=== PATIENT | female | born 1980 | race Caucasian/White ===

== ENCOUNTER → 2017-02-28 | Outpatient (CLI) | payer BC | END | disposition home or self-care (01) | LOC: C.PAPS 09:18 | PROVIDERS: ATTEND Obstetrics & Gynecology | DX: Z01.419 Encounter for gynecological examination (general) (routine) without abnormal findings (principal); Z11.51 Encounter for screening for human papillomavirus (HPV) ==

== ENCOUNTER 2019-03-05 05:43 | Inpatient (IN) ==
[2019-03-05] MEDS ORDERED: CITRIC ACID/SODIUM CITRATE 15 ML UDC PO SCH ×2 (06:00)
[2019-03-05] MEDS ORDERED: CLINDAMYCIN 900 MG in DEXTROSE 5% 50 ML IV SCH (06:00)
[2019-03-05] MEDS ORDERED: LACTATED RINGER'S 1,000 ML IV SCH ×4 (06:00→10:38)
[2019-03-05 06:08] LABS: Basophils # (auto) 0.01 K/uL (0-0.2); Basophils % (auto) 0.1 %; Eosinophils # (auto) 0.06 K/uL (0-0.5); Eosinophils % (auto) 0.9 %; Hematocrit (blood only) 33.7 % (37-47); Hemoglobin 11.6 g/dL (12.0-16.0); Immature Granulocytes # (auto) 0.03 K/uL (0.00-0.02); Immature Granulocytes % (auto) 0.4 %; Lymphocytes # (auto) 1.97 K/uL (1.2-3.4); Lymphocytes % (auto) 28.7 %; Mean Corpuscular Hemoglobin 30.8 pg (25-34); Mean Corpuscular Volume 89.4 fL (80-100); Mean Platelet Volume 10.2 fL (7.4-10.4); Monocytes # (auto) 0.64 K/uL (0.11-0.59); Monocytes % (auto) 9.3 %; Neutrophils # (auto) 4.16 K/uL (1.4-6.5); Neutrophils % (auto) 60.6 %; Platelet Count 232 K/uL (130-400); RDW Coefficient of Variation 13.1 % (11.5-14.5); RDW Standard Deviation 42.7 fL (36.4-46.3); Red Blood Count 3.77 M/uL (4.2-5.4); White Blood Count 6.87 K/uL (4.8-10.8)
[2019-03-05 06:11] LABS: Mean Corpuscular Hgb Conc 34.4 g/dL (32-36)
[2019-03-05] MEDS ORDERED: ePHEDrine sulfate 50 MG/ML AMP IV PRN (07:25)
[2019-03-05] MEDS ORDERED: MoRPHine SULFATE 2 MG/ML CARP IV PRN (07:25)
[2019-03-05] MEDS ORDERED: NALBUPHINE HCL INJ 10 MG/ML AMP IV PRN (07:25)
[2019-03-05] MEDS ORDERED: HYDROmorphone INJ 0.5 MG/0.5 ML SYR IV PRN (07:25)
[2019-03-05] MEDS ORDERED: NALOXONE HCL 0.4 MG/1 ML VIAL/CARP IV PRN (07:25)
[2019-03-05] MEDS ORDERED: ONDANSETRON INJ 2 MG/ML 2 ML VIAL IV PRN (07:25)
[2019-03-05] MEDS ORDERED: PROMETHAZINE HCL 6.25 MG in SODIUM CHLORIDE 0.9% 50 ML IV PRN (07:25)
[2019-03-05] MEDS ORDERED: MoRPHine SULFATE PF 1 MG/ML 10 ML AMP/VIAL INT SPINAL ONE (07:25)
[2019-03-05] MEDS ORDERED: MEPERIDINE HCL 25 MG/ML CARP IV PRN (07:25)
[2019-03-05] MEDS ORDERED: LACTATED RINGER'S 500 ML IV PRN (07:25)
[2019-03-05] MEDS ORDERED: NALOXONE HCL 0.08 MG in SYRINGE 1.8 ML IV PRN (07:25)
[2019-03-05] MEDS ORDERED: DiphenhydrAMINE HCL 50 MG/ML VIAL IV PRN ×2 (07:25)
[2019-03-05] MEDS ORDERED: NALOXONE HCL 1 MG in SODIUM CHLORIDE 0.9% 1000ML 1,000 ML IV PRN (07:25)
--- NOTE | 2019-03-05 07:26 | History & Physical Bridge Note ---
Date of Service March 05, 2019 History & Physical Bridge Note I have examined the patient, reviewed the History & Physical and in the interval since the performance of the History & Physical I have noted the following changes of clinical significance: no changes noted
--- NOTE | 2019-03-05 07:28 | Anesthesiology Consultation ---
Date of Service March 05, 2019 Assessment & Plan (1) Encounter for pre-operative examination: Chart Review Chart Review: Acceptable Risk for Surgery and Patient NOT seen in Pre Admission Testing Consults Requested none ASA ASA2 Proposed Anesthesia Anesthesia Type: Spinal Risk / Benefits Reviewed With: PT / POA / Parent / Guardian, Accepts Plan and Informed Consent Obtained History Surgery Operation Date: 03/05/19 07:30 Proposed Procedures p Section in LD - Yenni Zaragoza MD, FACOG Height/Weight Height: 5 ft 11 in Weight: 101.151 kg Allergies Allergy/AdvReac Type Severity Reaction Status Date / Time amoxicillin Allergy Severe Swelling Verified 03/04/19 14:14 of throat Medications Home Medications Medication Instructions Recorded Confirmed Last Taken 1 tab PO DAILY 02/28/18 03/04/19 02/25/18 08:00 calcium carbonate [Tums] 200 mg PO UD PRN 02/25/19 03/04/19 Unknown NPO Date Last Intake of Fluids: 03/04/19 Time Last Intake of Fluids: 23:00 Date Last Intake of Solids: 03/04/19 Time Last Intake of Solids: 19:00 Past Medical History Medical History Family history of reaction to anesthesia MOTHER SLOW TO WAKE UP Heart palpitations HX OF IN EARLY , HALTER - NO FINDINGS - RESOLVED Heartburn during History of migraine headaches Heart murmur (Acute) DX TEENAGER, NO PROBLEMS WITH Exercise / Class Metabolic Activity II 4-5 Yardwork/Stairs/Walk up hill Past Family History Family History Mother Diabetes Myocardial infarction Grandfather Myocardial infarction Sister Cervical incompetence Past Surgical History Surgical History History of section History of dilation and curettage History of loop electrical excision procedure (LEEP) Past Anesthesia History No Hx of Anesthesia Complications and No Family Hx of Anesthesia Complications History of PONV No Hx of PONV and No Hx of Motion Sickness Social History Smoking Status: Never smoker Do You Dip or Chew Tobacco: No Smoking End Date: 6 YRS AGO Hx Alcohol Use: No Alcohol type: wine alcohol intake frequency: holidays/special occasions only Hx Substance Use: No substance use type: does not use Physical Exam Vital Signs Last Vital Signs Temp 36.8 C 03/05/19 07:00 Pulse 68 03/05/19 07:01 Resp 20 03/05/19 07:00 BP 153/91 H 03/05/19 07:01 ENMT Mouth: no dentition abnormality Thyromental Distance: > or= 3.5 Finger Breadths Mallampati Class: II Neck normal visual inspection Respiratory normal respiratory effort Auscultation: lungs clear to auscultation bilaterally Cardiovascular Rate/Rhythm: regular rate and regular rhythm Psychiatric Orientation: alert Testing Laboratory Results 03/05/19 05:58
[2019-03-05] MEDS ORDERED: DC INTRASPINAL MORPHINE SCH (07:30)
[2019-03-05] MEDS ORDERED: NO NARCOTICS OR SEDATIVES SCH (07:30)
[2019-03-05] MEDS ORDERED: SODIUM CHLORIDE 0.9% 1000ML 1,000 ML IV SCH (07:30)
--- NOTE | 2019-03-05 07:30 | History & Physical Report ---
Date of Service March 05, 2019 Assessment & Plan (1) with 39 completed weeks gestation: fetus category one. Plan repeat c/s. r/b/se of surgery reviewed. Questions asked and answered. Plan to proceed. (2) History of delivery, antepartum: (3) Supervision of multigravida of advanced maternal age, antepartum: History of Present Illness Chief Complaint: desires c/s Primary Care Provider: NO PCP Patient is a 38yowf with iup at 39 0/7 weeks who presents to labor and delivery for repeat c/s. She has hx of previous c/s for FTD and declines a trial of labor. the has been uncomplicated. She is ama with a low risk panorama and normal testing. +fm . No lof /vb. Allergies Allergy/AdvReac Type Severity Reaction Status Date / Time amoxicillin Allergy Severe Swelling Verified 03/04/19 14:14 of throat Home Medications Home Medications Medication Instructions Recorded Confirmed Type 1 tab PO DAILY 02/28/18 03/04/19 History calcium carbonate [Tums] 200 mg PO UD PRN 02/25/19 03/04/19 History Patient History Medical History Family history of reaction to anesthesia MOTHER SLOW TO WAKE UP Heart palpitations HX OF IN EARLY , HALTER - NO FINDINGS - RESOLVED Heartburn during History of migraine headaches Heart murmur (Acute) DX TEENAGER, NO PROBLEMS WITH Surgical History History of section History of dilation and curettage History of loop electrical excision procedure (LEEP) Family History Mother Diabetes Myocardial infarction Grandfather Myocardial infarction Sister Cervical incompetence Social History Preferred Language: Polish Communication Ability: Effective Visual Impairment: No Limitations Camp Dining Room Attendant Required: No Beliefs That Will Affect Care: None marital status: Current Living Situation: Family Other Information That Helps Us Care for You: No Feels Safe at Home: Yes Safety Concerns: Feels Safe At This Time Smoking Status: Never smoker Do You Dip or Chew Tobacco: No ; Smoking End Date: 6 YRS AGO ; Second Hand Exposure: No ; Hx Alcohol Use: No Hx Substance Use: No OB History g1--2003, sab g2--06/23, 9 #2oz, c/s for FTD bg3--blighted ovum SYSTEMS SPECIALIST History Hx of leep in 2003 Review of Systems All systems reviewed & are unremarkable except as noted in HPI & below Physical Exam Constitutional: WD/WN, vitals as above Respiratory: normal respiratory effort, lungs clear to auscultation Cardiovascular: RRR, no murmur, no edema Gastrointestinal (Abdomen): soft, nt, gravid Psychiatric: A+Ox3, euthymic affect Results & Data Vital Signs (Past 12 Hours) Vital Signs Temp Pulse Resp BP 03/05/19 07:01 68 153/91 H 03/05/19 07:00 36.8 C 20 03/05/19 05:57 78 136/82 03/05/19 05:51 36.8 C 20
[2019-03-05] MEDS ORDERED: fentaNYL citrate 100 MCG/2 ML VIAL ONE (07:39)
[2019-03-05] MEDS ORDERED: MoRPHine SULFATE PF 1 MG/ML 10 ML AMP/VIAL ONE (07:39)
[2019-03-05] MEDS ORDERED: ONDANSETRON INJ 2 MG/ML 2 ML VIAL ONE (08:18)
[2019-03-05] MEDS ORDERED: OXYTOCIN 10 UNITS/ML VIAL ONE (08:18)
[2019-03-05] MEDS ORDERED: PHENYLEPHRINE 100MCG/ML 5ML SYR ONE (08:18)
[2019-03-05] MEDS ORDERED: KETOROLAC 30 MG/ML VIAL ONE (08:18)
--- NOTE | 2019-03-05 08:32 | Post Operative Brief Note ---
PG Immediate Post Op with CF Date of Surgery March 05, 2019 Pre & Post Diagnosis Operation Date: 03/05/19 07:30 Pre-Op Diagnosis: Intrauterine at 39 weeks with previous section Post-Op Diagnosis: Intrauterine at 39 weeks with previous section. Living male child delivered at 0806 Procedure Operation Date: 03/05/19 07:30 Actual Procedures p Repeat low transverse Section for living male child at 0806(Bilateral) - Yenni Zaragoza MD, FACOG Surgeon Yenni Zaragoza MD, FACOG Help Desk Consultant Dr. Matute Estimated Blood Loss 500 Findings Consistent with Post-Op Diagnosis Specimens Specimen Description: A; Placenta-hold B; Cord Blood C; Arterial Cord Gas D; Venous Cord Gas Drains Sage Catheter (sage inserted after spinal without difficulty. Draining clear yellow urine. Urine output to be monitored by anesthesia intraoperatively)
[2019-03-05 08:49] LABS: Base Excess Cord Arterial Bld -2.1 mEq/L (-9-1.8); CO2 Cord Arterial Blood 65 mmHg (39.1-73.5); HCO3 Cord Arterial Blood 27 mmol/L (19.7-28.5); pH Cord Arterial Blood 7.24 (7.1-7.38)
--- NOTE | 2019-03-05 08:54 | Anesthesiology Progress Note ---
Date of Service March 05, 2019 Anesthesia Post Procedure Vital Signs Vital Signs: Temp Pulse Resp BP Pulse Ox 03/05/19 08:51 63 119/71 03/05/19 08:47 66 96 03/05/19 08:44 65 94 03/05/19 08:42 65 97 03/05/19 08:39 69 118/68 94 03/05/19 08:37 69 98 03/05/19 07:01 68 153/91 H 03/05/19 07:00 36.8 C 20 03/05/19 05:57 78 136/82 03/05/19 05:51 36.8 C 20 Transfer of Care Handoff Completed per policy Notes Mental Status: alert / awake / arousable Nausea / Vomiting: adequately controlled Pain: adequately controlled Airway Patency, RR, SpO2: stable & adequate BP & HR: stable & adequate Hydration State: stable & adequate Neuraxial Anesthesia: was administered and sensory block is resolving Anesthetic Complications: no major complications apparent
[2019-03-05 08:56] LABS: Base Excess Cord Venous Blood -1.7 mEq/L (-7.7-1.9); Cord Venous Blood HCO3 25 mmol/L (18.4-26.8); Cord Venous Blood PCO2 47 mmHg (30.4-57.2); Cord Venous Blood PO2 21 mmHg (14.1-43.3); Cord Venous Blood pH 7.34 (7.20-7.44)
[2019-03-05 08:57] LABS: O2 Saturation Cord Venous Bld < 60.0 % (<68); Oxygen Sat Cord Arterial Blood < 60.0 % (<60)
--- NOTE | 2019-03-05 10:08 | Operative Report ---
DATE OF OPERATION: 03/05/2019 PREOPERATIVE DIAGNOSES: 1. Intrauterine at 39 and 0/7 weeks. 2. History of previous section, desires repeat. POSTOPERATIVE DIAGNOSES: 1. Intrauterine at 39 and 0/7 weeks. 2. History of previous section, desires repeat. PROCEDURE: Repeat lower transverse section. SURGEON: Yenni Zaragoza MD. MEDIA CENTER ASSISTANT: Giovani. ANESTHESIA: Spinal. ESTIMATED BLOOD LOSS: 500 mL. URINE OUTPUT: 500 mL of clear yellow urine drained from the bladder at the end of the procedure. FLUIDS: 1200 mL. INDICATIONS: The patient is 4, para 1-0-2-1, who presents at 39 weeks for repeat section and declines trial of labor. FINDINGS: Normal uterus, tubes and ovaries were noted bilaterally. Minimal scarring. Viable male infant was delivered in direct OP presentation. Apgars 8 and 9. Weight 8 pounds 1 ounce. COMPLICATIONS: None. DRAINS: Yanez. DISPOSITION: To Recovery Room in stable condition. DESCRIPTION OF PROCEDURE: The patient was taken to the Operating Room where she was identified verbally and by bracelet. She was seated on the operating table where spinal anesthetic was placed. She was then placed in dorsal supine position with a leftward tilt. A Yanez catheter was placed sterilely and she was prepped and draped in normal sterile fashion. Her anesthetic was tested and found to be adequate. A time-out was held identifying correct patient, procedure, positioning, preoperative antibiotic and there were no concerns. A Pfannenstiel skin incision was made with a knife, taken down to the underlying layer of fascia with the knife. Bleeding was attended to with Bovie electrocautery. The fascia was incised in the midline with the knife, taken out laterally with scissors. The superior edge of the fascial incision was grasped, elevated and the underlying layer of rectus muscle was taken off bluntly with scissors. In a similar fashion, the inferior edge of the fascial incision was grasped, elevated and the underlying layer of rectus muscle was taken off bluntly and with scissors. The muscles were sharply in the midline. The peritoneum had been entered upon taking down the fascia. There was a little bit of omental adhesions to the posterior fascia that was taken down with Bovie electrocautery. The incision was then stretched. Bladder blade was placed. Vesicouterine peritoneum was identified, entered with a pair of scissors, taken out laterally with scissors and the bladder flap was created digitally. The bladder blade was replaced. DICTATION ENDS ABRUPTLY I attest to the content of the Intraoperative Record and any orders documented therein. Any exception s are noted below.
--- NOTE | 2019-03-05 10:34 | Operative Report ---
DATE OF OPERATION: 03/05/2019 DATE OF PROCEDURE: 03/04/2019 PREOPERATIVE DIAGNOSES: 1. Intrauterine at 39 weeks. 2. History of previous sections, desires repeat. POSTOPERATIVE DIAGNOSES: 1. Intrauterine at 39 weeks. 2. History of previous sections, desires repeat. PROCEDURE: Repeat low transverse section. SURGEON: Yenni Zaragoza MD SYSTEMS AUDITOR: Gustavo Matute MD. ESTIMATED BLOOD LOSS: 500 mL. FLUIDS: 1200 mL. URINE OUTPUT: 500 mL of clear yellow urine drained from the bladder at the end of the procedures. ANESTHESIA: Spinal. INDICATIONS: The patient is a 4, para 1-0-2-1, who had a previous section for failure to descend. She desires repeat and declines trial of labor. FINDINGS: Normal male in direct OP presentation, no nuchal cord, clear fluid, Apgars 8 and 9. Weight 8 pounds 1 ounce. Normal uterus, tubes, and ovaries were noted bilaterally. COMPLICATIONS: None. DRAINS: Yanez. DISPOSITION: To recovery room in stable condition. DESCRIPTION OF PROCEDURE: The patient was taken to the operating room where she was identified verbally and by bracelet. She was seated on the operating table where spinal anesthetic was placed. She was then placed in the dorsal supine position with leftward tilt. A Yanez catheter was placed sterilely and she was prepped and draped in a normal sterile fashion. Timeout was held, identifying correct patient, procedure, positioning, and preoperative antibiotic. There were no concerns. A Pfannenstiel skin incision was made with a knife. This was taken down to the underlying layer of fascia with the knife and Bovie electrocautery. Bleeding was attended to with Bovie electrocautery. The fascia was incised in the midline with a knife and taken out laterally with scissors. The superior edge of the fascial incision was grasped, elevated, and underlying layer of rectus muscle was taken off bluntly and with scissors. In a similar fashion, the inferior edge of the fascial incision was grasped, elevated and the underlying layer of rectus muscle was taken off bluntly and with scissors. The peritoneum had been entered while taking down the fascia. There were some adhesions of the omentum to the posterior fascia. The muscles were sharply in the midline. The peritoneum was taken inferiorly with good visualization of the bladder. The incision was stretched. The omentum was removed using Bovie electrocautery. The vesicouterine peritoneum was identified, entered with a Metzenbaum scissors, taken out laterally with scissors and the bladder flap was created digitally. Hysterotomy incision was scored with a knife. It was eventually entered with a snap. The amniotic sac was ruptured for clear fluid. The incision was stretched with the shell trim operator's fingers. The shell trim operator's hand was placed into the uterine incision and had a difficult time delivering the head through the incision. A vacuum was called for and it was applied and popped off and then was applied again and the fetus head was delivered. There was no nuchal cord. The nose and mouth were bulb suctioned. The head presented to direct OP presentation. The rest of the infant was then delivered with fundal pressure. There was immediate cry. Cord was clamped and cut and the infant was handed off to the awaiting pediatricians for drying and attention. Cord blood and segment were obtained. Placenta was manually extracted. The uterus was exteriorized and cleared of all clot and debris with moistened laparotomy sponges. The hysterotomy was repaired in layers, the first in a running locked layer of 0 Vicryl, the second in an imbricating layer of 0 Vicryl. The posterior cul-de-sac was irrigated and cleared of all clot and debris. The hysterotomy incision was again inspected and found to be hemostatic. The uterus was reanteriorized. The incision was irrigated and inspected again and found to be hemostatic. The muscles were reapproximated with several interrupted sutures of 0 Vicryl and the fascia was reapproximated starting at the corners and meeting in the midline with 0 Vicryl. Subcuticular tissue was irrigated. Bleeding was attended to with Bovie electrocautery and then the skin was closed with subcuticular stitch of 4-0 Vicryl. All sponge, lap and needle counts were correct x2. The patient tolerated the procedure well and was taken to recovery room in stable condition. I attest to the content of the Intraoperative Record and any orders documented therein. Any exception s are noted below.
[2019-03-05] MEDS ORDERED: MAGNESIUM HYDROXIDE SUSP 30 ML UDC PO PRN (10:38)
[2019-03-05] MEDS ORDERED: HYDROCORTISONE ACETATE 25 MG SUPP PR PRN (10:38)
[2019-03-05] MEDS ORDERED: SUPERCREAM 0.870% 15 GM JAR EXT PRN (10:38)
[2019-03-05] MEDS ORDERED: BENZOCAINE 20% AER SPR 82.5 GM CAN EXT PRN (10:38)
[2019-03-05] MEDS ORDERED: DIPHTHERIA/TETANUS/PERTUSSIS 0.5 ML SYR/VIAL IM ONE (10:38)
[2019-03-05] MEDS ORDERED: OXYTOCIN 20 UNITS in LACTATED RINGER'S 1,000 ML IV SCH (10:38)
[2019-03-05] MEDS: SIMETHICONE 80 MG CHEW PO SCH ×3 (16:40→20:59)
[2019-03-05] MEDS: KETOROLAC 30 MG/ML VIAL IV PRN ×2 (17:31→23:59)
[2019-03-05] MEDS: DOCUSATE SODIUM 100 MG CAP PO SCH (20:59)
[2019-03-06] MEDS ORDERED: MEPERIDINE HCL 50 MG/ML CARP IV PRN (01:25)
[2019-03-06] MEDS ORDERED: DiphenhydrAMINE HCL 50 MG/ML VIAL IV PRN (01:25)
[2019-03-06] MEDS ORDERED: PROMETHAZINE HCL 25 MG in SODIUM CHLORIDE 0.9% 50 ML IV PRN (01:25)
[2019-03-06] MEDS ORDERED: KETOROLAC 30 MG/ML VIAL IV PRN (01:25)
[2019-03-06] MEDS ORDERED: ONDANSETRON INJ 2 MG/ML 2 ML VIAL IV PRN (01:25)
[2019-03-06] MEDS: OXYCODONE/ACETAMINOPHEN 5mg/325mg TAB PO PRN ×4 (05:02→22:20)
--- NOTE | 2019-03-06 06:18 | Obstetrical Progress Note ---
Date of Service <Flora Sullivan DO - Last Filed: 03/06/19 06:45> March 06, 2019 Assessment & Plan <DO Melissa Cason Last Filed: 03/06/19 06:45> (1) Encounter for care and examination after delivery: 38 yo F POD #1, doing well and without complaints this morning. section - POD #1 - Feels well, ambulating well, voiding well. - Will continue routine care. - Following d/c will have f/u in 6 weeks. - Blood type A+, Rubella immune. Subjective <Flora Sullivan DO - Last Filed: 03/06/19 06:45> Ara is a 38 yo female with advanced maternal age; POD # 1 following section delivery at 39w0d; doing well this AM; no abdominal cramping/pain; voiding well, passing gas but no BM; tolerating meals overnight, able to ambulate some within the room. Some persistent spotting this morning but improved from yesterday. 24 Hour I/Os: Intake: 4690 mL Output: 5900 mL Review of Systems Constitutional: denies fever, chills, sweats, headache Respiratory: denies SOB, difficulty breathing Cardiac: denies CP, chest palpitations, chest pressure Breast: denies breast pain : denies dysuria Physical Exam <DO Melissa Cason Last Filed: 03/06/19 06:45> General: patient is alert and oriented, in NAD Cardiac: +S1/S2, no murmurs rubs or gallops Respiratory: lungs CTA b/l, anteriorly and posteriorly, no wheezes rales or rhonchi, no increased work of breathing, symmetric chest rise, no respiratory distress Abdomen: soft, NT, +bowel sounds Uterus: uterine fundus firm, palpable 1cm below the umbilicus. Incision intact, non-tender, non-erythematous, no weeping from incision site Lower Extremities: no LE edema or swelling, no deep calf pain, Krystyna's sign negative b/l Results & Data <DO Melissa Cason Last Filed: 03/06/19 06:45> Vital Signs (Past 12 Hours) Vital Signs Temp Pulse Resp BP Pulse Ox 03/06/19 04:50 37.1 C 61 16 121/81 97 03/06/19 00:55 16 98 09/27/19 00:15 36.3 C L 65 16 115/73 99 03/05/19 23:20 16 99 03/05/19 22:35 16 96 03/05/19 21:03 18 99 03/05/19 20:00 20 100 03/05/19 19:40 36.8 C 73 20 148/83 H 100 03/05/19 19:15 18 95 Laboratory Results Laboratory Results - last 24 hr 03/05/19 03/05/19 03/05/19 05:58 08:06 08:06 Cord ABG pH 7.24 Cord ABG pCO2 65 Cord ABG pO2 14.0 Cord ABG HCO3 27 Cord ABG Base Excess -2.1 Cord ABG O2 Sat < 60.0 Cord VBG pH 7.34 Cord VBG pCO2 47 Cord VBG pO2 21 Cord VBG HCO3 25 Cord VBG Base Excess -1.7 Cord VBG O2 Sat < 60.0 Barometric Pressure 728.4 728.4 Blood Gas Comments SALDANA SALDANA Blood Type A Positive Antibody Screen NEGATIVE Medications Administered Current Medications Benzocaine (Dermoplast Pain Relieving [place]) 1 appln EXT UD PRN PRN Reason: use on skin as needed Stop: 04/04/19 10:37 Bisacodyl (Dulcolax) 5 mg PO 1999 [facility] Stop: 03/06/19 20:01 Bisacodyl (Dulcolax) 10 mg IA PRN PRN PRN Reason: Constipation Stop: 04/06/19 08:40 Cocaine HCl (Supercream 0.870%) 1 gm EXT UD PRN PRN Reason: hemmorrhoidal inflammation Stop: 03/19/19 10:37 Diphenhydramine HCl (Benadryl) 25 mg IV QID PRN PRN Reason: Itching Stop: 04/05/19 01:24 Diphenhydramine HCl (Benadryl Capsule) 25 mg PO QID PRN PRN Reason: Itching Stop: 04/05/19 01:24 Docusate Sodium (Colace) 100 mg PO DAILY@, [facility] Stop: 04/04/19 20:59 Last Admin: 03/05/19 20:59 Dose: 100 mg Documented by: Hydrocortisone (Anusol Hc) 25 mg IA BID PRN PRN Reason: Hemorrhoids Stop: 04/04/19 10:37 Lactated Ringer's (Lr) 1,000 mls @ 125 mls/hr IV .Q8H JENARO Stop: 04/04/19 10:37 Last Infusion: 03/06/19 01:55 Dose: 0 mls/hr Documented by: Promethazine HCl 25 mg/ Sodium (Chloride) 51 mls @ 204 mls/hr IV Q4H PRN PRN Reason: Nausea And Vomiting Stop: 04/05/19 01:24 Ibuprofen (Motrin) 600 mg PO Q4H PRN PRN Reason: Pain Stop: 04/04/19 10:37 Ketorolac Tromethamine (Toradol) 30 mg IV Q6H PRN PRN Reason: Pain Stop: 03/11/19 01:24 Magnesium Hydroxide (Milk Of Magnesia) 30 ml PO HS PRN PRN Reason: Constipation Stop: 04/04/19 10:37 Meperidine HCl (Demerol) 50 - 75 mg IV Q4H PRN PRN Reason: Pain Stop: 03/20/19 01:24 Ondansetron HCl (Zofran) 4 mg IV Q4H PRN PRN Reason: Nausea And Vomiting Stop: 04/05/19 01:24 Oxycodone/Acetaminophen (Percocet 5mg/325mg) 1 - 2 tab PO Q4H PRN PRN Reason: Pain Stop: 03/20/19 01:24 Last Admin: 03/06/19 05:02 Dose: 1 tab Documented by: Prenat Multivit/Appraisal Specialist/Iron/Folic Ac ( Vitamin) 1 tab PO DAILY@08 JENARO Stop: 04/05/19 07:59 Simethicone (Mylicon) 80 mg PO DAILY@08,13,17,21 [facility] Stop: 04/04/19 12:59 Last Admin: 03/05/19 20:59 Dose: 80 mg Documented by: <Yenni Zaragoza MD, FACOG - Last Filed: 03/06/19 07:11> Co-Signing Physician Notes Resident Physician Supervision Note: I interviewed and examined the patient. Discussed with Dr. Dr. Waite and agree with findings and plan as documented in the note. Any exceptions or clarifications are listed here: Doing well. Routine PPD/POD 1. Documented By: Yenni Zaragoza MD, FACOG Resident Activity Tracking <Flora Sullivan, DO - Last Filed: 03/06/19 06:45> Resident Involvement: Resident Care Provided Care Provided: Adult Hospital Medicine
[2019-03-06 06:57] LABS: Basophils # (auto) 0.01 K/uL (0-0.2); Basophils % (auto) 0.1 %; Eosinophils # (auto) 0.04 K/uL (0-0.5); Eosinophils % (auto) 0.5 %; Hematocrit (blood only) 28.3 % (37-47); Hemoglobin 9.7 g/dL (12.0-16.0); Immature Granulocytes # (auto) 0.01 K/uL (0.00-0.02); Immature Granulocytes % (auto) 0.1 %; Lymphocytes # (auto) 1.47 K/uL (1.2-3.4); Lymphocytes % (auto) 17.1 %; Mean Corpuscular Hemoglobin 30.6 pg (25-34); Mean Corpuscular Hgb Conc 34.3 g/dL (32-36); Mean Corpuscular Volume 89.3 fL (80-100); Mean Platelet Volume 10.1 fL (7.4-10.4); Monocytes # (auto) 0.79 K/uL (0.11-0.59); Monocytes % (auto) 9.2 %; Platelet Count 183 K/uL (130-400); RDW Coefficient of Variation 13.2 % (11.5-14.5); RDW Standard Deviation 42.6 fL (36.4-46.3); Red Blood Count 3.17 M/uL (4.2-5.4); White Blood Count 8.62 K/uL (4.8-10.8)
[2019-03-06] MEDS: SIMETHICONE 80 MG CHEW PO SCH ×4 (08:13→20:42)
[2019-03-06] MEDS: DOCUSATE SODIUM 100 MG CAP PO SCH ×2 (08:14→20:42)
[2019-03-06] MEDS: PRENATAL VITAMIN 1 TAB PO SCH (08:14)
--- NOTE | 2019-03-06 09:01 | Anesthesiology Progress Note ---
Date of Service March 06, 2019 Anesthesia Post Procedure Vital Signs Vital Signs: Temp Pulse Pulse Resp BP BP Pulse Ox 03/06/19 08:34 37.0 C 69 16 116/76 03/06/19 04:50 37.1 C 61 16 121/81 97 03/06/19 00:55 16 98 03/06/19 00:15 36.3 C L 65 16 115/73 99 03/05/19 23:20 16 99 03/05/19 22:35 16 96 03/05/19 21:03 18 99 03/05/19 20:00 20 100 03/05/19 19:40 36.8 C 73 20 148/83 H 100 03/05/19 19:15 18 95 03/05/19 17:08 15 99 03/05/19 16:22 37.1 C 66 16 139/66 98 03/05/19 15:15 16 99 03/05/19 14:04 16 100 03/05/19 13:17 16 99 03/05/19 12:20 16 99 03/05/19 11:38 36.8 C 63 16 145/87 H 99 03/05/19 11:22 64 100 03/05/19 11:20 66 145/87 H 03/05/19 11:17 61 150/89 H 99 03/05/19 11:12 61 99 03/05/19 11:11 62 89 L 03/05/19 11:10 61 133/92 03/05/19 11:07 63 100 03/05/19 11:02 67 100 03/05/19 11:00 60 130/87 03/05/19 10:57 64 100 03/05/19 10:52 67 99 03/05/19 10:50 60 127/83 03/05/19 10:47 63 99 03/05/19 10:42 67 99 03/05/19 10:40 36.8 C 60 20 125/84 03/05/19 10:37 63 98 03/05/19 10:32 62 98 03/05/19 10:30 62 126/82 03/05/19 10:27 63 99 03/05/19 10:22 65 97 03/05/19 10:20 61 124/74 03/05/19 10:17 62 98 03/05/19 10:12 64 99 03/05/19 10:10 62 20 128/84 03/05/19 10:07 65 99 03/05/19 10:02 62 99 03/05/19 10:00 62 127/84 03/05/19 09:57 68 98 03/05/19 09:52 65 98 03/05/19 09:50 61 122/76 03/05/19 09:47 62 96 03/05/19 09:42 63 97 03/05/19 09:40 36.5 C 70 20 127/77 03/05/19 09:37 63 97 03/05/19 09:32 63 97 03/05/19 09:30 59 L 20 119/68 03/05/19 09:27 63 97 03/05/19 09:22 63 97 03/05/19 09:20 61 20 122/58 L 03/05/19 09:17 62 96 03/05/19 09:12 60 97 03/05/19 09:11 61 117/58 L 03/05/19 09:10 20 03/05/19 09:07 65 96 03/05/19 09:02 66 96 Transfer of Care Handoff Completed per policy Notes Mental Status: alert / awake / arousable Patient Amnestic to Procedure: Yes Nausea / Vomiting: adequately controlled Pain: adequately controlled Airway Patency, RR, SpO2: stable & adequate BP & HR: stable & adequate Hydration State: stable & adequate Neuraxial Anesthesia: was administered and sensory block resolved Anesthetic Complications: no major complications apparent and Pt Satisfied with anesthetic care
[2019-03-06] MEDS: IBUPROFEN 600 MG TAB PO PRN ×3 (10:32→22:20)
[2019-03-06] MEDS ORDERED: bisacodyL 5 MG TABEC PO SCH (20:00)
[2019-03-07 06:40] LABS: Hematocrit (blood only) 30.2 % (37-47); Hemoglobin 10.2 g/dL (12.0-16.0)
--- NOTE | 2019-03-07 06:54 | Obstetrical Progress Note ---
Date of Service <Flora Sullivan DO - Last Filed: 03/07/19 08:00> March 07, 2019 Assessment & Plan <Flora Sullivan DO - Last Filed: 03/07/19 08:00> (1) Encounter for care and examination after delivery: 38 yo F POD #2 following section at 39w0d, doing well and without complaints this morning. section - POD #2 - Feels well, ambulating well, voiding well. - For discharge today. - Following d/c will have f/u in 6 weeks. - Blood type A+, Rubella immune. - Discussed discharge instructions and answered all patient questions. Subjective <Flora Sullivan DO - Last Filed: 03/07/19 08:00> Ara is a 38 yo female ; POD # 2 following section delivery at 39w0d; doing well this AM; no abdominal cramping/pain; voiding well, passing gas but no BM; tolerating meals overnight, able to ambulate some within the room. Some persistent spotting this morning but improved from yesterday. Desires d/c today. 24 Hour I/Os: not recorded Review of Systems Constitutional: denies fever, chills, sweats, headache Respiratory: denies SOB, difficulty breathing Cardiac: denies CP, chest palpitations, chest pressure Breast: denies breast pain : denies dysuria Physical Exam <Flora Sullivan DO - Last Filed: 03/07/19 08:00> General: patient is alert and oriented, in NAD Cardiac: +S1/S2, no murmurs rubs or gallops Respiratory: lungs CTA b/l, anteriorly and posteriorly, no wheezes rales or rhonchi, no increased work of breathing, symmetric chest rise, no respiratory distress Abdomen: soft, NT, +bowel sounds Uterus: uterine fundus firm, palpable 1cm below the umbilicus. Incision intact, non-tender, non-erythematous, no weeping from incision site Lower Extremities: no LE edema or swelling, no deep calf pain, Krystyna's sign negative b/l Results & Data <Flora Sullivan DO - Last Filed: 03/07/19 08:00> Vital Signs (Past 12 Hours) Vital Signs Temp Pulse Resp BP 03/06/19 23:30 37.1 C 73 18 137/81 Laboratory Results Laboratory Results - last 24 hr 03/06/19 03/07/19 06:24 06:25 WBC 8.62 RBC 3.17 L Hgb 9.7 L 10.2 L Hct 28.3 L 30.2 L MCV 89.3 MCH 30.6 MCHC 34.3 RDW Std Deviation 42.6 RDW Coeff of Sonia 13.2 Plt Count 183 MPV 10.1 Immature Gran % (Auto) 0.1 Neut % (Auto) 73.0 Lymph % (Auto) 17.1 [place] % (Auto) 9.2 Eos % (Auto) 0.5 Baso % (Auto) 0.1 Immature Gran # (Auto) 0.01 Neut # (Auto) 6.30 Lymph # (Auto) 1.47 [place] # (Auto) 0.79 H Eos # (Auto) 0.04 Baso # (Auto) 0.01 Medications Administered Current Medications Benzocaine (Dermoplast Pain Relieving Keener) 1 appln EXT UD PRN PRN Reason: use on skin as needed Stop: 04/04/19 10:37 Bisacodyl (Dulcolax) 10 mg SD PRN PRN PRN Reason: Constipation Stop: 04/06/19 08:40 Cocaine HCl (Supercream 0.870%) 1 gm EXT UD PRN PRN Reason: hemmorrhoidal inflammation Stop: 03/19/19 10:37 Diphenhydramine HCl (Benadryl) 25 mg IV QID PRN PRN Reason: Itching Stop: 04/05/19 01:24 Diphenhydramine HCl (Benadryl Capsule) 25 mg PO QID PRN PRN Reason: Itching Stop: 04/05/19 01:24 Docusate Sodium (Colace) 100 mg PO DAILY@08,21 JENARO Stop: 04/04/19 20:59 Last Admin: 03/06/19 20:42 Dose: 100 mg Documented by: Hydrocortisone (Anusol Hc) 25 mg SD BID PRN PRN Reason: Hemorrhoids Stop: 04/04/19 10:37 Lactated Ringer's (Lr) 1,000 mls @ 125 mls/hr IV .Q8H JENARO Stop: 04/04/19 10:37 Last Infusion: 03/06/19 01:55 Dose: 0 mls/hr Documented by: Promethazine HCl 25 mg/ Sodium (Chloride) 51 mls @ 204 mls/hr IV Q4H PRN PRN Reason: Nausea And Vomiting Stop: 04/05/19 01:24 Ibuprofen (Motrin) 600 mg PO Q4H PRN PRN Reason: Pain Stop: 04/04/19 10:37 Last Admin: 03/06/19 22:20 Dose: 600 mg Documented by: Ketorolac Tromethamine (Toradol) 30 mg IV Q6H PRN PRN Reason: Pain Stop: 03/11/19 01:24 Magnesium Hydroxide (Milk Of Magnesia) 30 ml PO HS PRN PRN Reason: Constipation Stop: 04/04/19 10:37 Meperidine HCl (Demerol) 50 - 75 mg IV Q4H PRN PRN Reason: Pain Stop: 03/20/19 01:24 Ondansetron HCl (Zofran) 4 mg IV Q4H PRN PRN Reason: Nausea And Vomiting Stop: 04/05/19 01:24 Oxycodone/Acetaminophen (Percocet 5mg/325mg) 1 - 2 tab PO Q4H PRN PRN Reason: Pain Stop: 03/20/19 01:24 Last Admin: 03/06/19 22:20 Dose: 1 tab Documented by: Prenat Multivit/[employer]/Iron/Folic Ac ( Vitamin) 1 tab PO DAILY@08 [facility] Stop: 04/05/19 07:59 Last Admin: 03/06/19 08:14 Dose: 1 tab Documented by: Simethicone (Mylicon) 80 mg PO DAILY@08,13,17,21 [facility] Stop: 04/04/19 12:59 Last Admin: 03/06/19 20:42 Dose: 80 mg Documented by: <Miriam Michel MD, FACOG - Last Filed: 03/07/19 08:08> Co-Signing Physician Notes Resident Physician Supervision Note: I was present with Dr. Sullivan during the history and exam. I discussed the case with the resident and agree with the findings and plan as documented in the note. Any exceptions or clarifications are listed here: pt doing well, no complaints. no cp/sob. voiding, ambul and gabriela po without prob. +flatus. pain well controlled although feels more bruised this time around. ff 1 down nt, incision c/d/i with steris, nt calves. discussed d/c home, she desires, instructions reviewed. she will need to sched 6wk check up. checked on pa pdmp and no issues indentified. Documented By: Miriam Michel MD, FACOG Resident Activity Tracking <Flora Sullivan, DO - Last Filed: 03/07/19 08:00> Resident Involvement: Resident Care Provided Care Provided: Adult Hospital Medicine
[2019-03-07] MEDS: IBUPROFEN 600 MG TAB PO PRN ×2 (06:59→11:59)
[2019-03-07] MEDS: OXYCODONE/ACETAMINOPHEN 5mg/325mg TAB PO PRN ×2 (06:59→11:59)
[2019-03-07] MEDS ORDERED: bisacodyL 10 MG SUPP PR PRN (08:41)
[2019-03-07] MEDS: SIMETHICONE 80 MG CHEW PO SCH ×3 (08:42→12:03)
[2019-03-07] MEDS: PRENATAL VITAMIN 1 TAB PO SCH (08:42)
[2019-03-07] MEDS: DOCUSATE SODIUM 100 MG CAP PO SCH (08:42)
--- NOTE | 2019-03-09 08:17 | Discharge Summary ---
ADMIT DIAGNOSES: 1. Intrauterine at 39 weeks. 2. History of previous section, desires repeat. PROCEDURES: Repeat lower transverse section. HISTORY OF PRESENT ILLNESS: The patient is a 38-year-old white female 4, para 1-0-2-1 with an intrauterine at 39 and 0/7 weeks, who presents to labor and delivery for repeat section. She has a history of previous section for failure to descend after achieving complete dilation and declines a trial of labor. The has been uncomplicated. She is AMA with low-risk panorama and normal testing. For the rest of patient's history and physical, see her history and physical. ASSESSMENT: This is a at 39 completed weeks, who presents for repeat section. HOSPITAL COURSE: The patient was admitted and underwent a repeat lower transverse section without difficulty. ESTIMATED BLOOD LOSS: 500 mL. FINDINGS: Normal male in OP presentation, no nuchal cord, with clear fluid, Apgars 8 and 9, weight 8 pounds 1 ounce. Normal uterus, tubes, and ovaries were noted bilaterally. The patient's postoperative course was uncomplicated. She tolerated a regular diet, voided after the removal of her Yanez catheter, ambulated without difficulty. Her pain was well controlled on oral pain medications. She was discharged home on postoperative day #2 with Percocet for pain. Her discharge H and H was 10.2 and 30.2. She will return in 6 weeks for routine postoperative care.
== END 2019-03-07 14:05 | disposition home or self-care (01) | DRG 788 ==
LOC: 4S1 05:43 → EDSTATUS 07:30 → 4S2 11:38